=== PATIENT | male | born 1990 | race Caucasian/White ===

== ENCOUNTER 2021-03-09 20:44 | Emergency (ER) | payer BC ==
[~2021-03-09] VITALS: Ht 172.7 cm; Wt 88.5 kg
[2021-03-09 21:00] VITALS: BP_SYST 149
[2021-03-09] MEDS ORDERED: KETOROLAC TROMETHAMINE 60 MG/2 ML VIAL IM ONE (21:30)
[2021-03-09] MEDS ORDERED: ACET1TAB23 PO (21:58)
[2021-03-09] MEDS ORDERED: IBUP-1969 PO (21:58)
== END 2021-03-09 22:19 | disposition home or self-care (01) ==
LOC: SED 20:44
DX: S62.316A Displaced fracture of base of fifth metacarpal bone, right hand, initial encounter for closed fracture (principal); W22.01XA Walked into wall, initial encounter; Y93.89 Activity, other specified; Y92.89 Other specified places as the place of occurrence of the external cause; Y99.8 Other external cause status
CPT/HCPCS: 29125; 73110; 73130; 96372; 99284; J1885; J7030